=== PATIENT | male | born 1995 | race Two or more races ===

== ENCOUNTER 2022-04-28 12:17 | Emergency (ER) | payer SELFPAY ==
--- NOTE | ~2022-04-28 | XR_ITS ---
EXAMINATION: XR KNEE, LEFT CLINICAL INFORMATION: Left knee pain COMPARISON: None TECHNIQUE: Four views of the left knee. FINDINGS: No fracture, dislocation or destructive lesion or joint effusion. XR/XR knee LT 4V IMPRESSION: Normal left knee.
[2022-04-28 13:04] VITALS: BP 144/88; PULSE 73; RESP 16; TEMP 37.1; O2SAT 97; BMI 27.7
--- NOTE | 2022-04-28 13:41 | ED.LOWEXIN ---
HPI - Extremity Injury (Lower) General Chief Complaint: Extremity Injury, Lower Stated Complaint: L knee pain Time Seen by Provider: 04/28/22 13:36 Source: patient Mode of arrival: ambulatory Limitations: no limitations History of Present Illness HPI Narrative: 26-year-old male here with left knee pain after jumping and causing a twisting injury to the knee left night. Patient denies swelling, redness, warmth, fevers, chills. No sensation change. Related Data Allergies Allergy/AdvReac Type Severity Reaction Status Date / Time No Known Allergies Allergy Verified 04/28/22 13:15 Review of Systems Review of Systems: Yes all other systems are reviewed and are negative Constitutional: Constitutional: Reports no additional constitutional complaints, Denies body ache(s), Denies chills, Denies fever(s), Denies headache(s) and Denies weakness Eyes: Eyes: Reports no additional eye complaints and Denies change in vision ENT: Reports system reviewed and no additional complaints, except as documented, Denies dizziness, Denies headache(s), Denies nasal congestion, Denies nasal discharge and Denies neck pain Cardiovascular: Cardiovascular: Reports no additional cardiovascular complaints, Denies chest pain, Denies leg edema and Denies dyspnea Respiratory: Respiratory: Reports no additional respiratory complaints, Denies cough and Denies dyspnea Gastrointestinal: Gastrointestinal: Reports no additional gastrointestinal complaints, Denies abdominal pain, Denies diarrhea, Denies nausea and Denies vomiting Genitourinary: Genitourinary: Denies urinary incontinence Musculoskeletal: Musculoskeletal: Reports no additional musculoskeletal complaints, Denies back pain, Reports arthralgias, Reports joint swelling, Denies neck pain, Denies numbness and Denies tingling Integumentary/Breasts: Skin/Breast: Reports system reviewed and no additional complaints, except as docu and Denies rash Neurologic: Reports system reviewed and no additional complaints, except as documented, Denies Abnormal speech present, Denies dizziness, Denies headache(s), Denies numbness, Denies tingling and Denies weakness PMFSH Past Medical History Attestation statement: The following information was validated with the patient. Source: old records reviewed and nursing notes reviewed Social History Social History Advance Directives: No Advance Directives Information Provided: Yes Physical Exam Vital Signs: Vital Signs: Last Vital Signs Temp 98.8 F 04/28/22 13:04 Pulse 73 04/28/22 13:04 Resp 16 04/28/22 13:04 BP 144/88 H 04/28/22 13:04 Pulse Ox 97 04/28/22 13:04 O2 Del Method 04/28/22 13:04 BMI result Body Mass Index 27.7 Const: General: cooperative, healthy appearing, comfortable and no acute distress Orientation/consciousness: patient oriented x3 Limitations: no limitations HEENT: Head: Yes normal to inspection Ears: hearing grossly normal bilaterally General nose exam: Normal external nose present Face and sinus: Yes normal facial exam Mouth: Normal oral and palatal mucosa present Throat: Yes posterior oropharynx normal Eyes: General: appearance normal, both eyes and all related structures Pupils: Equal, round and reactive pupils present Neck: Neck: Yes normal visual inspection Chest: Chest palpation & inspection: normal inspection of the chest Resp: Effort & Inspection: normal respiratory effort Auscultation: clear to auscultation bilaterally Cardio: Rate: regular rate Rhythm: regular rhythm Peripheral pulses: Peripheral pulses 2+ throughout GI: Inspection: Yes normal to inspection Palpation (GI): Soft to palpation and nontender Auscultation: normal bowel sounds Back/Spine/Pelvis: Thoracic/Lumbar Spine: thoracic and lumbar spine normal to inspection Skin: General skin exam: no rashes or lesions noted Neuro: General: patient oriented x3, no focal motor deficits and normal sensation to monofilament Cranial nerves: Yes Equal, round and reactive pupils present Cognition (Neuro): normal cognition Speech: No Abnormal speech present Gait exam (Neuro): Normal gait present Motor exam (neuro): 5/5 motor strength present throughout Extrem: Other: Tenderness along the left knee at the medial joint line and at the medial ligament. Full range of motion. There is mild ligamental laxity noted over the medial ligament General: Yes normal to inspection Course Course Course Narrative: X-ray showed no bony abnormality. On exam the patient has tenderness and some mild laxity over the MCL and at the joint line. He reports instability since the injury of the knee and feeling like it is going to give out on him. Likely MCL sprain. Patient placed in Davis wrap and given crutches. Recommend rice. Recommend orthopedic follow-up in 5-7 days if having persistent symptoms. Reviewed worrisome signs and symptoms of when to return to the emergency department. Comfortable discharge home. MDM - Extremity Injury (Lower) MDM Narrative Medical decision making narrative: 26-year-old male with left knee pain after a twisting injury which occurred last evening. Will obtain x-rays Medical Records Attestation: I reviewed the patient's medical records. Lab Data Attestation: I reviewed the patient's lab results. Imaging Data knee xray: Attestation: I personally reviewed and interpreted this imaging study as follows: Radiologist's impression: Launch?Image [place] [id number] XRay Report Signed Patient: Ramsey Carrasco MR#: [id number] : 1995 Acct:[id number] Age/Sex: 26 / M ADM Date: 04/28/22 Loc: HO.ED Attending Dr: Ordering Physician: Bear Beltran MD Date of Service: 04/28/22 Procedure(s): XR knee LT 4V Accession Number(s): [id number] cc: Bear Beltran MD~ EXAMINATION: XR KNEE, LEFT CLINICAL INFORMATION: Left knee pain? COMPARISON: None? TECHNIQUE: Four views of the left knee. FINDINGS: No fracture, dislocation or destructive lesion or joint effusion.? XR/XR knee LT 4V IMPRESSION: Normal left knee. ? Procedures Procedure Narrative Procedure Narrative: Davis wrap, crutches Discharge Plan Discharge Clinical Impression: Left knee sprain Patient Disposition: Home, Self-Care Instructions: Knee Sprain (ED), Crutch Instructions (ED), How to Use an Elastic Bandage (ED) Additional Instructions: If having persistent symptoms after 5-7 days please call Orthopedics for follow-up Rest, ice, elevation Use the Davsi wrap and crutches until able to bear weight without experiencing pain Take Motrin or Tylenol for pain as needed Referrals: [facility] Orthopedic Surgeons [Provider Group] Stand Alone Forms: Work/School Release Interventions: ED Discharge Assessment Last Done: 04/28/22 14:40 Discharge Date/Time: 04/28/22 14:41
== END 2022-04-28 14:41 | disposition home or self-care (01) ==
PROVIDERS: Emergency Provider Emergency Medicine
DX: S83.92XA Sprain of unspecified site of left knee, initial encounter (principal); M25.562 Pain in left knee; X50.1XXA Overexertion from prolonged static or awkward postures, initial encounter; Y93.9 Activity, unspecified; Y92.9 Unspecified place or not applicable; Y99.9 Unspecified external cause status
CPT/HCPCS: 73564; 99283

== ENCOUNTER 2024-09-06 10:57 | Emergency (ER) | payer SELFPAY ==
[2024-09-06 11:22] VITALS: BP 124/71; PULSE 83; RESP 16; TEMP 36.8; O2SAT 98; BMI 31.0
--- NOTE | 2024-09-06 11:25 | ED_ITS ---
HPI - General Adult General Chief complaint: Upper Respiratory Symptoms Stated complaint: Strep Throat Time Seen by Provider: 09/06/24 13:44 Source: patient and RN notes reviewed Mode of arrival: ambulatory Limitations: no limitations History of Present Illness ED Provider: Latrice Acuña PA-C [facility] narrative: This is a 29-year-old male who presents emergency department with complaints of sore throat for the last 2 days. He has been using cough drops without any relief. He states that he previously had a cough however no longer does. He states that the pain worsens with swallowing. He denies any fevers or chills. Denies any congestion, chest pain, shortness for breath, abdominal pain, nausea, vomiting or diarrhea. Denies any sick contacts. No other complaints or concerns at this time. MD complaint: Sore throat Onset (ago): day(s) Radiation: non-radiation Quality: aching Pain Consistency: constant Relieving factors: none Exacerbating factors: none Associated symptoms: denies other symptoms Treatments prior to arrival: none Related Data Previous Rx's ?Medication ?Instructions ?Recorded acetaminophen 500 mg tablet 1,000 mg (2 x 500 mg) PO Q8H PRN 09/06/24 (Tylenol Extra Strength) fever or pain #30 tabs amoxicillin 500 mg capsule 500 mg PO BID 10 days #20 caps 09/06/24 ibuprofen 600 mg tablet (IBU) 600 mg PO Q6H PRN fever or pain 09/06/24 #30 tabs Allergies Allergy/AdvReac Type Severity Reaction Status Date / Time No Known Allergies Allergy Verified 09/06/24 11:24 Review of Systems Review of Systems: Yes all other systems are reviewed and are negative Constitutional: Constitutional: Reports as per [facility] Social History Social History Advance Directives: No Advance Directives Information Provided: Yes Physical Exam ED Vital Signs: Vital Signs - 24 hr 09/06/24 11:22 09/06/24 14:03 09/06/24 15:15 Temperature 98.2 F 99.1 F 98.1 F Pulse Rate 83 79 74 Respiratory Rate 16 12 18 Blood Pressure 124/71 113/70 114/72 Pulse Oximetry 98 98 99 Oxygen Delivery Method Room Air Room Air Room Air BMI result Body Mass Index 31.0 Const General: cooperative, comfortable and no acute distress Orientation/consciousness: patient oriented x3 Limitations: no limitations HENMT Other: Posterior oropharynx is erythematous, no tonsillar hypertrophy or exudates. Patient's uvula is midline however appears to be edematous and erythematous. Tolerating secretions well, no trismus, drooling, or dysphonia. Head: Yes normal to inspection, Yes normocephalic and Yes atraumatic Ears: hearing grossly normal bilaterally and TM's normal bilaterally General nose exam: Normal external nose present Face and sinus: Yes normal facial exam Mouth: moist mucous membranes Throat: Yes posterior oropharynx normal Eyes General: appearance normal, both eyes and all related structures Eyelids: Yes eyelids normal Conjunctivae: conjunctivae normal Sclerae: sclerae normal Pupils: Equal, round and reactive pupils present EOM: EOMs intact bilaterally Neck Neck: Yes normal visual inspection, Yes full ROM and Yes no lymphadenopathy Lymphatic: no lymphadenopathy noted Chest Chest palpation & inspection: normal inspection of the chest Resp Effort & Inspection: normal respiratory effort and able to speak in complete sentences Auscultation: clear to auscultation bilaterally, no crackles, no rales, no rhonchi and no wheezes Cardio Rate: regular rate Rhythm: regular rhythm Heart sounds: S1 normal heart sound present and S2 normal heart sound present GI Inspection: Yes normal to inspection Skin General skin exam: no rashes or lesions noted Trauma: no lacerations or abrasions Wounds: no wounds Neuro General: patient oriented x3 and moves all extremities Cranial nerves: Yes Equal, round and reactive pupils present Extrem General: Yes normal to inspection Right upper extremity: normal to inspection Left upper extremity: normal to inspection Right lower extremity: normal to inspection Left lower extremity: normal to inspection Course Course Course Narrative: RME; 29-year-old male healthy presents to ED for sore throat and slight cough. Patient denies any chest pain, shortness of breath. Physical exam negative for signs of peritonsillar abscess. Lungs are clear. SARs strep ordered Medical Decision Making Medical Decision Making [facility] Narrative: This is a 29-year-old male who presents emergency department with complaints of sore throat for the last 2 days. On arrival, vital signs within normal limits. He is speaking in full sentences under no acute distress. Oropharynx is erythematous, no tonsillar hypertrophy or exudates. Uvula is midline however appears to be edematous, and erythematous. Given appearance, will treat with course of antibiotics. He tested negative for strep pharyngitis, viral swabs otherwise negative. Given strict return precautions. Discharged on ibuprofen, Tylenol, and amoxicillin. Patient stable for discharge Differential Diagnosis Differential Diagnoses: The differential diagnosis associated with the presentation includes Strep pharyngitis, uvulitis, [employer], viral URI Lab Data MDM Lab Attestation statement: I reviewed the patient's lab results. Negative flu, RSV, COVID, strep Labs: Lab Results 09/06/24 Range/Units 11:49 Influenza Type A (PCR) NEGATIVE (Negative) Influenza Type B (PCR) NEGATIVE (Negative) RSV RNA Qual (PCR) NEGATIVE (Negative) SARS-CoV-2 RNA (RT-PCR) NEGATIVE (Negative) S. pyogenes GrpA ALLI Negative (Negative) Discharge Plan Discharge Clinical Impression: Pharyngitis, Uvulitis Patient Disposition: Home, Self-Care Instructions: Pharyngitis (ED), Uvulitis (ED) Additional Instructions: You were seen in the emergency department due to a sore throat. You tested negative for COVID, flu, and RSV. You tested negative for strep throat. We are treating you with a course of antibiotics given the appearance of your throat. Please finish the entire course even if your symptoms improve. Alternate between ibuprofen and Tylenol. Drink tea with honey, saltwater gargles, popsicles. Drink plenty of fluids get plenty of rest. If any new or worsening symptoms occur including but not limited to inability to swallow, difficulty breathing, please seek emergent care as soon as possible. Prescriptions: New amoxicillin 500 mg capsule 500 mg PO BID 10 Days Qty: 20 0RF ibuprofen [IBU] 600 mg tablet 600 mg PO Q6H PRN (Reason: fever or pain) Qty: 30 0RF acetaminophen [Tylenol Extra Strength] 500 mg tablet 1,000 mg PO Q8H PRN (Reason: fever or pain) Qty: 30 0RF Stand Alone Forms: Work/School Release Interventions: ED Discharge Assessment Last Done: 09/06/24 15:15 Discharge Date/Time: 09/06/24 15:15 Print Language: Trinid[place]
[2024-09-06 12:09] LABS: IDNOW Serial# 08D9AD1C; Strep A Nucleic Acid Negative (Negative)
[2024-09-06 12:40] LABS: Influenza A PCR NEGATIVE (Negative); Influenza B PCR NEGATIVE (Negative); Resp Syncy Virus RNA Qual PCR NEGATIVE (Negative); SARS COV2 PCR INHOUSE NEGATIVE (Negative)
[2024-09-06 14:03] VITALS: BP 113/70; PULSE 79; RESP 12; TEMP 37.3; O2SAT 98
[2024-09-06 15:15] VITALS: BP 114/72; PULSE 74; RESP 18; TEMP 36.7; O2SAT 99
== END 2024-09-06 15:15 | disposition home or self-care (01) ==
PROVIDERS: Physician Assistant; Emergency Provider Student in an Organized Health Care Education/Training Program
DX: J02.9 Acute pharyngitis, unspecified (principal); K12.2 Cellulitis and abscess of mouth; Z03.818 Encounter for observation for suspected exposure to other biological agents ruled out
CPT/HCPCS: 0241U; 87651; 99283